=== PATIENT | male | born 1995 | race Caucasian/White ===

== ENCOUNTER 2018-11-02 22:07 | Emergency (ER) | payer BC ==
[2018-11-02 22:12] VITALS: BP 129/80
--- NOTE | 2018-11-02 22:17 | ER Report ---
History and Physical Time Seen By MD: 22:11 HPI/ROS CHIEF COMPLAINT: Panic attack HISTORY OF PRESENT ILLNESS: 23-year-old male having a panic attack over climate change. He's been listening to and watching TV. He's having anxiety. He is fearful the plan at will and. Patient denies suicidal ideation. Patient denies chest pain or shortness of breath. REVIEW OF SYSTEMS: Respiratory: No cough, no dyspnea. Cardiovascular: No chest pain, no palpitations. Gastrointestinal: No vomiting, no abdominal pain. Musculoskeletal: No back pain. Allergies: Coded Allergies: No Known Drug Allergies (Unverified , 11/02/18) Home Meds Active Scripts Lorazepam (ATIVAN) 1 Mg Tablet, 1 MG PO Q8-12H PRN for ANXIETY, #10 Prov:ERVIN GARAY DO 11/02/18 Reviewed Nurses Notes: Yes Old Medical Records Reviewed: Yes Constitutional Vital Sign - Last 24 Hours 11/02/18 22:12 Pulse 79 Resp 20 B/P (MAP) 129/80 Pulse Ox 93 O2 Delivery Room Air Physical Exam General Appearance: The patient is alert, has no immediate need for airway protection and no current signs of toxicity. Anxious-appearing, vital signs stable, pulse ox normal HEENT: Pupils equal and round no injection. Oropharynx without redness or exudate, mucous members are moist Respiratory: Chest is non tender, lungs are clear to auscultation. Cardiac: regular rate and rhythm Gastrointestinal: Abdomen is soft and non tender, no masses, bowel sounds normal. Musculoskeletal: Neck: Neck is supple and non tender. Extremities have full range of motion and are non tender. Skin: No rashes or lesions. DIFFERENTIAL DIAGNOSIS: After history and physical exam differential diagnosis was considered for panic attack, anxiety, hyperventilation syndrome, substance abuse, substance withdrawal Medical Decision Making ED Course/Re-evaluation ED Course Patient's admitted to an examination room. H&P was done. The differential diagnoses was considered. Patient with acute anxiety. He's having a panic attack. He is medicated with Ativan 1 mg. On reevaluation he feels much better. He'll be given a limited supply of Ativan 0.5 mg to use when necessary. He is advised to follow-up with his counselor at . He is also given additional information for other counselors. He seems unsatisfied with his current counselor. Decision to Disposition Date: Nov 02, 2018 Decision to Disposition Time: 22:52 Depart Departure Latest Vital Signs Vital Signs Date Time Temp Pulse Resp B/P (MAP) Pulse Ox O2 Delivery O2 Flow Rate FiO2 11/02/18 22:12 79 20 129/80 93 Room Air Impression: Primary Impression: Panic attack Additional Impression: History of anxiety disorder Condition: Improved Disposition: HOME OR SELF-CARE Referrals: [facility] New Scripts Lorazepam (ATIVAN) 1 Mg Tablet 1 MG PO Q8-12H PRN for ANXIETY, #10 Prov: ERVIN GARAY DO 11/02/18 Patient Instructions: Panic Attack (ED) Additional Instructions: Follow-up with your counselor or get a new counselor at [facility] see the information provided Problem Qualifiers EVRIN GARAY DO Nov 02, 2018 22:17
[2018-11-02] MEDS ORDERED: LORazepam 1 MG TAB PO ONE (22:20)
[2018-11-02] MEDS ORDERED: LORA-1456 PO (22:54)
== END 2018-11-02 23:03 | disposition home or self-care (01) ==
LOC: ER 22:30
DX: F41.0 Panic disorder [episodic paroxysmal anxiety] (principal); F41.9 Anxiety disorder, unspecified
CPT/HCPCS: 99283